=== PATIENT | female | born 1940 | race Caucasian/White ===

== ENCOUNTER 2022-02-27 14:08 | Emergency (ER) | payer MEDICARE ==
[2022-02-27 14:57] LABS: BASOPHIL 0.9 % (0-2); EOSINOPHIL 0.3 % (0-7); HCT 44.8 % (37.0-47.0); HGB 14.6 g/dl (12.5-16.0); LYMPHOCYTE 29.4 % (15-48); MCH 31.1 pg (25.0-31.0); MCHC 32.6 g/dL (32.0-36.0); MCV 95.5 fL (78.0-100.0); MONOCYTE 5.1 % (0-12); MPV 10.4 fL (6.0-9.5); NEUTROPHIL 63.8 % (41-80); NRBC 0; PLT 326 K/uL (150-400); RBC 4.69 M/uL (4.20-5.40); RDW 12.6 % (11.5-14.0)
[2022-02-27 15:12] LABS: ALBUMIN 3.9 g/dL (3.4-5.0); BILIRUBIN - TOTAL 0.4 mg/dL (0.2-1.0); BUN/CREAT RATIO (CALC) 22.2 RATIO; CREATININE 0.81 mg/dL (0.51-0.95); POTASSIUM 3.7 mmol/L (3.5-5.1); TOTAL PROTEIN 7.9 g/dL (6.4-8.2)
[2022-02-27 15:40] LABS: BILIRUBIN NEGATIVE (NEGATIVE); BLOOD NEGATIVE Ery/uL (NEGATIVE); COLOR YELLOW (YELLOW); GLUCOSE (U) NORMAL (NORMAL); LEUKOCYTES 2+ Leu/uL (NEGATIVE); NITRITE POSITIVE (NEGATIVE); PROTEIN 1+ mg/dL (NEGATIVE); SPECIFIC GRAVITY 1.025 (1.001-1.030); UROBILINOGEN 0.2 mg/dL (0.2-1.0)
[2022-02-27 15:42] LABS: CLARITY HAZY (CLEAR)
[2022-02-27 15:49] LABS: BACTERIA 4+; URINARY WBC TNTC
[2022-02-27 15:52] LABS: URINARY RBC RARE
[2022-02-27] MEDS ORDERED: CEPHALEXIN500 MG PO (17:01)
== END 2022-02-27 17:46 | disposition home or self-care (01) ==
LOC: FER 14:08
PROVIDERS: Emergency Medicine
DX: R03.0 Elevated blood-pressure reading, without diagnosis of hypertension (principal); N39.0 Urinary tract infection, site not specified; U07.1 COVID-19
CPT/HCPCS: 36415; 70450; 71045; 80053; 81001; 84484; 85025; 87076; 87088; 87186; 93005; J0696; U0002

== ENCOUNTER 2022-03-14 23:07 | Emergency (ER) | payer MEDICARE ==
[~2022-03-14] VITALS: Ht 162.6 cm; Wt 59.4 kg
[~2022-03-14 23:07] MED LIST: CEPHALEXIN500 MG PO
== END 2022-03-15 00:09 | disposition home or self-care (01) ==
LOC: FER 23:07
DX: S51.812A Laceration without foreign body of left forearm, initial encounter (principal); I10 Essential (primary) hypertension; W01.0XXA Fall on same level from slipping, tripping and stumbling without subsequent striking against object, initial encounter; Y92.009 Unspecified place in unspecified non-institutional (private) residence as the place of occurrence of the external cause